=== PATIENT | female | born 1965 | race Caucasian/White ===

== ENCOUNTER 2024-06-25 21:59 | Emergency (ER) | payer OTHER ==
[~2024-06-25] VITALS: Ht 177.8 cm; Wt 54.4 kg
--- NOTE | 2024-06-25 22:15 | NUR ---
[id number] [facility] DEMOCRAT FOR SYNCOPAL EPISODE, NO HEADTRAUMA WAS GUIDED TO FLOOR +NAUSEA, +LOW BP 84/57
[2024-06-25 22:32] LABS: BASOPHILS % (AUTO) 0.4 % (0.0-2.0); EOSINOPHILS # (AUTO) 0.1 K/uL (0.0-0.7); EOSINOPHILS % (AUTO) 1.6 % (0.0-6.0); HEMATOCRIT 34 % (33-45); LYMPHOCYTES # (AUTO) 2.1 K/uL (0.8-4.8); LYMPHOCYTES % (AUTO) 40.1 % (20.0-44.0); MEAN CORPUSCULAR HEMOGLOBIN 28 PG (26.0-33.0); MEAN CORPUSCULAR HGB CONC 33 g/dl (31.0-36.0); MEAN CORPUSCULAR VOLUME 84 fL (82-100); MONOCYTES # (AUTO) 0.5 K/uL (0.1-1.30); MONOCYTES % (AUTO) 8.8 % (2.0-12.0); NEUTROPHILS # (AUTO) 2.5 K/uL (1.8-8.9); NEUTROPHILS % (AUTO) 49.1 % (43.0-81.0); PLATELET COUNT (AUTO) 239 K/uL (150-450); RED CELL DISTRIBUTION WIDTH 15.5 % (11.5-15.0); WHITE BLOOD COUNT (AUTO) 5.1 K/uL (4.3-11.0)
[2024-06-25] MEDS: IV NS 0.9% 1,000 ML BAG IV ONE (22:35)
[2024-06-25 22:41] LABS: CALCIUM, SERUM 8.5 mg/dL (8.5-10.1); CARBON DIOXIDE 27 mmol/L (21-32); CHLORIDE 101 mmol/L (98-107); GLUCOSE 70 mg/dL (74-106); POTASSIUM 2.9 mmol/L (3.5-5.1); SODIUM SERUM 137 mmol/L (136-145); UREA NITROGEN, BLOOD 23 mg/dL (7-18)
[2024-06-25 22:48] LABS: ALANINE AMINOTRANSFERASE 31 U/L (12-78); ALBUMIN 3.2 g/dL (3.4-5.0); ALKALINE PHOSPHATASE 42 U/L (46-116); ASPARTATE AMINOTRANSFERASE 28 U/L (15-37); BILIRUBIN,TOTAL 0.3 mg/dL (0.2-1.0); TOTAL PROTEIN, SERUM 6.6 g/dL (6.4-8.2)
[2024-06-25 22:51] LABS: INR 1.09 (0.91-1.10); PARTIAL THROMBOPLASTIN TIME 23.1 SEC (24.3-34.3); PROTHROMBIN TIME 11.5 SECS (9.2-11.1)
[2024-06-25] MEDS ORDERED: POTASSIUM CHLORIDE 20 MEQ TAB.PRT.SR PO ONE (23:34)
[2024-06-25] MEDS ORDERED: POTASSIUM CL. PREMIX PERIPHER. 50 ML ONE (23:34)
[2024-06-25] MEDS: POTASSIUM CL. PREMIX PERIPHER. 50 ML IV ONE (23:48)
[2024-06-25] MEDS: POTASSIUM CHLORIDE 20 MEQ TAB.PRT.SR PO ONE (23:49)
[2024-06-26] VITALS: BP 91/67; TEMP 98.7; O2SAT 98
--- NOTE | 2024-06-26 00:48 | NUR ---
Patient does not wish to proceed with medical care recommended by Dr. Jose. Patient given information related to possible complications, up to and including , which could occur as a result of leaving the hospital at this time. Patient verbalizes understanding of risks involved due to leaving against medical advice. Patient has signed AMA form.
== END 2024-06-26 01:27 | disposition left against medical advice (07) ==
LOC: ER 22:04
DX: R55 Syncope and collapse (principal); E87.6 Hypokalemia; R94.31 Abnormal electrocardiogram [ECG] [EKG]
CPT/HCPCS: 99285; 96365; 71045; 96361; 93005; 85025; 80048; 87040; 83605; 80076; 36415; 84484; 85730; 82962; J7030; J7040; J3480; A4223